=== PATIENT | female | born 1960 | race Caucasian/White ===

== ENCOUNTER → 2016-10-08 | Outpatient (CLI) | payer SELFPAY | LOC: MW.CHOBGYN 10:13 | PROVIDERS: ATTEND Nurse Practitioner Women's Health | DX: E78.5 Hyperlipidemia, unspecified (principal) | CPT/HCPCS: 36415; 80061 ==

== ENCOUNTER → 2016-10-14 | Outpatient (CLI) | payer SELFPAY | END | disposition home or self-care (01) | LOC: MW.CHOBGYN 15:03 | DX: R07.9 Chest pain, unspecified (principal) ==

== ENCOUNTER → 2016-10-18 | Outpatient (CLI) | payer SELFPAY ==
--- NOTE | 2016-10-20 16:05 | US ---
EXAM DATE: 10/18/16 PATIENT'S AGE: 56 Patient: ARIANA DUBON Facility: [facility], [place], [place] Site . Site : [id number] Study: US Head [id number]/[id number] 12:22:08 PM Ordering Physician: Claudia Meier Final Report: HISTORY: Subjective visual disturbances. Headaches. Findings: Multiple grayscale static images from a bilateral carotid ultrasound were evaluated. Color and spectral Doppler was used. There is no echogenic plaque is seen within the right carotid vasculature. The peak systolic velocity in the distal right carotid bulb is 50 cm/second. The peak systolic velocity in the right internal carotid artery is 108 cm/second. The peak end-diastolic velocity is 45 cm/second. The right external carotid artery is patent. The right vertebral artery demonstrates antegrade flow. No echogenic plaque is seen within the left carotid bulb. The peak systolic velocity in the distal left common carotid artery is 62 cm/second. The peak systolic velocity left internal carotid artery is 116 cm/second. The peak end- diastolic velocity is 48 cm/second. The left external carotid is patent. The left vertebral artery demonstrates antegrade flow. Impression: 1. The Doppler waveforms within the right and left internal carotid arteries are compound less than 50 percent stenosis. They are the lower end of this range. 2. Antegrade flow within both vertebral arteries. Dictated by Kathrine Diego MD @ Oct 19 2016 10:26AM (Electronic Signature) Report Signed by Proxy and Original Signed Document filed in the Medical Record. LANE
== END ==
LOC: MW.US 11:17
PROVIDERS: ATTEND Nurse Practitioner Women's Health
DX: H53.10 Unspecified subjective visual disturbances (principal)
CPT/HCPCS: 93880; 93880-26

== ENCOUNTER 2018-03-24 08:05 | Day surgery (SDC) | payer OTHER ==
[~2018-03-24 08:05] MED LIST: Lactated Ringers 1,000 ML IV SCH
[2018-03-24] MEDS ORDERED: Lidocaine 2% 5 ML SDV ONE (08:44)
[2018-03-24] MEDS ORDERED: fentaNYL 100 MCG/2 ML SDV ONE (08:44)
[2018-03-24] MEDS ORDERED: Propofol 200 MG/20 ML SDV ONE ×2 (08:44→10:34)
[2018-03-24] MEDS ORDERED: Midazolam 1 MG/ML 2 ML SDV ONE (08:45)
--- NOTE | 2018-03-24 08:52 | PCM.PREANE ---
Preanesthetic Assessment - Procedure Proposed Procedure: Colonoscopy - Anesthesia/Transfusion/Family Hx Anesthesia History: Prior Anesthesia Reaction Other Type of Anesthesia Reaction Comment: "arrhythmia with carpal tunnel surgery" Family History of Anesthesia Reaction: No Transfusion History: No Prior Transfusion(s) Intubation History: Unknown - Review of Systems General: No Symptoms Pulmonary: Other (smoker) Cardiovascular: Other (hx of arrhythmia with anesthetic elsewhere) Gastrointestinal: No Symptoms Neurological: No Symptoms Other: Reports: Diabetes (borderline per hx), Anxiety - Physical Assessment NPO Status Date: 03/23/18 NPO Status Time: 23:00 O2 Sat by Pulse Oximetry: 97 Respiratory Rate: 16 Vital Signs: Last Vital Signs Temp 97.0 F 03/24/18 08:25 Pulse 71 03/24/18 08:25 Resp 16 03/24/18 08:25 BP 107/53 L 03/24/18 08:25 Pulse Ox 97 03/24/18 08:25 Height: 5 ft 1 in Weight: 138 lb ASA Class: 2 Mental Status: Alert & Oriented x3 Airway Class: Mallampati = 2 Dentition: Reports: Dentures (lowers out) Thyro-Mental Finger Breadths: 3 Mouth Opening Finger Breadths: 3 ROM/Head Extension: Full Lungs: Clear to Auscultation, Normal Respiratory Effort Cardiovascular: Regular Rate, Regular Rhythm, No Murmurs - Allergies Allergies/Adverse Reactions: Allergies Allergy/AdvReac Type Severity Reaction Status Date / Time bee venom protein (honey bee) Allergy Swelling Verified 03/21/18 09:26 codeine Allergy Nausea and Verified 03/21/18 09:26 Vomiting mold Allergy hayfever Verified 03/21/18 09:26 symptoms pollen extracts Allergy hayfever Verified 03/21/18 09:26 symptoms dust mite Allergy "hayfever Uncoded 03/21/18 09:26 symptoms" - Blood Blood Available: No Product(s) Available: None - Anesthesia Plan Pre-Op Medication Ordered: None - Acknowledgements Anesthesia Type Planned: MAC Pt an Appropriate Candidate for the Planned Anesthesia: Yes Alternatives and Risks of Anesthesia Discussed w Pt/Guardian: Yes Pt/Guardian Understands and Agrees with Anesthesia Plan: Yes PreAnesthesia Questionnaire HEENT History: Reports: Allergic Rhinitis, Other (See Below) Other HEENT History: wears glasses, top denture Cardiovascular History: Reports: High Cholesterol, Other (See Below) Other Cardiovascular History: palpatations Gastrointestinal History: Reports: None Genitourinary History: Reports: None 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, Musculoskeletal History: Reports: None Psychiatric History: Reports: Anxiety, Depression Endocrine/Metabolic History: Reports: Other (See Below) Other Endocrine/Metabolic History: "borderline diabetic", diet controlled - Past Surgical History Head Surgeries/Procedures: Reports: None GI Surgical History: Reports: Cholecystectomy Female Surgical History: Reports: Tubal Ligation, Other (See Below) Other Female Surgeries/Procedures: laparoscopy for endometriosis Musculoskeletal Surgical History: Reports: Carpal Tunnel - SUBSTANCE USE Smoking Status *Q: Current Every Day Smoker Tobacco Use Within Last Twelve Months: Cigarettes Recreational Drug Use History: No - HOME MEDS Home Medications: Home Meds Ascorbic Acid/Collagen Hydr [Collagen Plus Vit C] 2 tab PO DAILY 03/21/18 [ History] Cranberry Fruit [Cranberry] 2 tab PO DAILY 03/21/18 [History] Fish Oil/[place]-3 Fatty Acids [Fish Oil 1,000 MG] 1 tab PO DAILY 03/21/18 [ History] Lutein 1 tab PO DAILY 03/21/18 [History] PARoxetine HCl [Paxil] 1 tab PO DAILY 03/21/18 [History] Vitamin E 2 tab PO DAILY 03/21/18 [History] Zolpidem Tartrate [Zolpidem Tartrate ER] 1 tab PO BEDTIME PRN 03/21/18 [History] atorvaSTATin Calcium [Atorvastatin Calcium] 40 mg PO DAILY 03/21/18 [History] - CURRENT (IN HOUSE) MEDS Current Meds: Current Medications Lactated Ringer's (Ringers, Lactated) 1,000 mls @ 125 mls/hr IV ASDIRECTED RENÉE Last Admin: 03/24/18 08:30 Dose: 125 mls/hr Discontinued Medications Fentanyl (Sublimaze) Confirm Administered Dose 100 mcg .ROUTE .STK-MED ONE Stop: 03/24/18 08:45 Lidocaine (Xylocaine-Mpf 2%) Confirm Administered Dose 10 ml .ROUTE .STK-MED ONE Stop: 03/24/18 08:45 Midazolam HCl (Versed 1 Mg/Ml) Confirm Administered Dose 2 mg .ROUTE .STK-MED ONE Stop: 03/24/18 08:46 Propofol (Diprivan 20 Ml) Confirm Administered Dose 400 mg .ROUTE .STK-MED ONE Stop: 03/24/18 08:45
[2018-03-24] MEDS ORDERED: Sodium Chloride 0.9% 2.5 ML Syringe FLUSH PRN (10:54)
[2018-03-24] MEDS ORDERED: Ondansetron 4 MG/2 ML SDV IVPUSH PRN (10:54)
[2018-03-24] MEDS ORDERED: Sodium Chloride 0.9% 10 ML Syringe FLUSH PRN (10:54)
--- NOTE | 2018-03-24 10:57 | PCM.OPNOTE ---
- General Post-Op/Procedure Note Date of Surgery/Procedure: 03/24/18 Operative Procedure(s): Colonoscopy with cold sigmoid colon polypectomy Pre Op Diagnosis: Desire for colorectal cancer screening Post-Op Diagnosis: Sigmoid polyp. Pancolonic diverticulosis. Anesthesia Technique: MAC (ASA II) Primary Surgeon: Gabriel Elizalde Professional Advisor: Satish Gomez Condition: Good Free Text/Narrative:: DICTATION [id number] CPT CODE 28468
--- NOTE | 2018-03-24 11:26 | PCM.POSTAN ---
POST ANESTHESIA ASSESSMENT - MENTAL STATUS Mental Status: Alert, Oriented - RESPIRATORY Respiratory Status: Respiratory Rate WNL, Airway Patent, O2 Saturation Stable - CARDIOVASCULAR CV Status: Pulse Rate WNL, Blood Pressure Stable - GASTROINTESTINAL GI Status: No Symptoms - POST OP HYDRATION Hydration Status: Adequate & Stable
--- NOTE | 2018-03-24 11:29 | PCM48HPAN ---
Post Anesthesia Note - EVALUATION WITHIN 48HRS OF ANESTHETIC Vital Signs in Normal Range: Yes Patient Participated in Evaluation: Yes Respiratory Function Stable: Yes Airway Patent: Yes Cardiovascular Function Stable: Yes Hydration Status Stable: Yes Pain Control Satisfactory: Yes Nausea and Vomiting Control Satisfactory: Yes Mental Status Recovered: Yes Resp Rate: 8
--- NOTE | 2018-03-24 15:54 | OR ---
SURGEON: Gabriel Elizalde M.D. DATE OF PROCEDURE: 03/24/2018 OPERATION PERFORMED: Colonoscopy with cold sigmoid colon polypectomy. COMMODITIES REQUIREMENTS ANALYST: Dr. Bazzi, PGY2 ANESTHESIA: MAC. ASA CLASSIFICATION: II. PREOPERATIVE DIAGNOSIS: Desire for colorectal cancer screening. POSTOPERATIVE DIAGNOSES: 1. Sigmoid polyp. 2. Pancolonic diverticulosis. DESCRIPTION OF PROCEDURE: The patient was taken to the endoscopy room and positioned on the endoscopy table in the left lateral decubitus position. Time-out was called for appropriate identification of patient and procedure. Monitored anesthesia care was provided. The colonoscope was inserted into the rectum and advanced with moderate difficulty to the cecum where the colonoscope was retroflexed to visualize the ascending colon from below. The colonoscope was then straightened and slowly withdrawn. The patient demonstrates diverticular changes scattered throughout the entire length of the colon. The cecum, ascending colon, hepatic flexure, transverse colon, splenic flexure, descending colon, sigmoid colon, and rectum were very well visualized. I was able to retroflex the colonoscope in the cecum to visualize the ascending colon from below before straightening it and withdrawing it. One polyp was encountered in the sigmoid colon and removed with multiple bites of the cold biopsy forceps. The colonoscope was then withdrawn to the rectum and retroflexed to visualize the anal orifice from above. No tumors, polyps, or acute hemorrhoidal changes were noted. The colonoscope was straightened, the rectum aspirated, and the colonoscope removed. The patient tolerated the procedure well and was taken to recovery room in stable condition. JOSE / PARISA /[id number]
== END 2018-03-24 12:20 | disposition home or self-care (01) ==
LOC: MW.SDS 08:05
PROVIDERS: ATTEND Surgery
DX: Z12.11 Encounter for screening for malignant neoplasm of colon (principal); D12.5 Benign neoplasm of sigmoid colon; K57.30 Diverticulosis of large intestine without perforation or abscess without bleeding; J30.9 Allergic rhinitis, unspecified; E11.9 Type 2 diabetes mellitus without complications; E87.1 Hypo-osmolality and hyponatremia; E78.5 Hyperlipidemia, unspecified; G47.00 Insomnia, unspecified; D72.829 Elevated white blood cell count, unspecified; F41.9 Anxiety disorder, unspecified; F41.8 Other specified anxiety disorders; F17.210 Nicotine dependence, cigarettes, uncomplicated; Z79.899 Other long term (current) drug therapy; Z88.5 Allergy status to narcotic agent; Z91.030 Bee allergy status; Z91.048 Other nonmedicinal substance allergy status
CPT/HCPCS: 45380; J2250; J2704; J3010; J7120; 88305

== ENCOUNTER 2018-10-27 07:23 | Day surgery (SDC) | payer OTHER ==
[2018-10-27] MEDS ORDERED: Lidocaine 2% 5 ML SDV ONE (07:43)
[2018-10-27] MEDS ORDERED: Midazolam 1 MG/ML 2 ML SDV ONE (07:44)
[2018-10-27] MEDS ORDERED: fentaNYL 100 MCG/2 ML SDV ONE (07:44)
[2018-10-27] MEDS ORDERED: Propofol 200 MG/20 ML SDV ONE (07:44)
[2018-10-27] MEDS ORDERED: traMADol 50 MG Tab PO PRN (08:00)
[2018-10-27] MEDS ORDERED: Bupivacaine 0.25%/EPINEPHrine 1:200,000 10 ML SDV INJECT ONE (08:00)
[2018-10-27] MEDS ORDERED: ceFAZolin 2 GM in Premix Bag 1 BAG IV ONE (08:00)
[2018-10-27] MEDS ORDERED: Lactated Ringers 1,000 ML IV SCH (08:00)
[2018-10-27] MEDS ORDERED: ceFAZolin 1 GM Vial ONE (08:22)
[2018-10-27] MEDS ORDERED: Meperidine PF 25 MG/ML Syringe IV PRN (08:24)
[2018-10-27] MEDS ORDERED: fentaNYL 100 MCG/2 ML SDV IVPUSH PRN (08:25)
--- NOTE | 2018-10-27 08:43 | PCM.PREANE ---
Preanesthetic Assessment - Anesthesia/Transfusion/Family Hx Anesthesia History: Prior Anesthesia Without Reaction Other Type of Anesthesia Reaction Comment: "arrhythmia with carpal tunnel surgery" Transfusion History: No Prior Transfusion(s) Intubation History: Unknown - Review of Systems General: No Symptoms Pulmonary: No Symptoms Cardiovascular: No Symptoms Gastrointestinal: No Symptoms Neurological: No Symptoms Other: Reports: None - Physical Assessment NPO Status Date: 10/26/18 NPO Status Time: 23:00 O2 Sat by Pulse Oximetry: 97 Respiratory Rate: 16 Vital Signs: Last Vital Signs Temp 680.0 F H 10/27/18 06:45 Pulse 72 10/27/18 06:45 Resp 16 10/27/18 06:45 BP 122/74 10/27/18 06:45 Pulse Ox 97 10/27/18 06:45 Height: 5 ft 1 in Weight: 63.503 kg ASA Class: 2 Mental Status: Alert & Oriented x3 Airway Class: Mallampati = 2 Dentition: Reports: Dentures Thyro-Mental Finger Breadths: 3 Mouth Opening Finger Breadths: 3 ROM/Head Extension: Limited/Partial Lungs: Clear to Auscultation, Normal Respiratory Effort Cardiovascular: Regular Rate, Regular Rhythm - Allergies Allergies/Adverse Reactions: Allergies Allergy/AdvReac Type Severity Reaction Status Date / Time bee venom protein (honey bee) Allergy Swelling Verified 10/24/18 10:06 codeine Allergy Nausea and Verified 10/24/18 10:06 Vomiting mold Allergy hayfever Verified 10/24/18 10:06 symptoms pollen extracts Allergy hayfever Verified 10/24/18 10:06 symptoms dust mite Allergy "hayfever Uncoded 03/21/18 09:26 symptoms" - Acknowledgements Anesthesia Type Planned: MAC (Local with Light MAC) Pt an Appropriate Candidate for the Planned Anesthesia: Yes Alternatives and Risks of Anesthesia Discussed w Pt/Guardian: Yes Pt/Guardian Understands and Agrees with Anesthesia Plan: Yes PreAnesthesia Questionnaire HEENT History: Reports: Allergic Rhinitis, Other (See Below) Other HEENT History: wears glasses, top denture Cardiovascular History: Reports: High Cholesterol, Hypertension Respiratory History: Reports: None Gastrointestinal History: Reports: Diverticulosis Genitourinary History: Reports: None [employer]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: 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, Musculoskeletal History: Reports: Back Pain, Chronic, Osteoarthritis Neurological History: Reports: None Psychiatric History: Reports: Anxiety, Depression Endocrine/Metabolic History: Reports: Other (See Below) Other Endocrine/Metabolic History: "borderline diabetic", diet controlled Hematologic History: Reports: None Immunologic History: Reports: None Oncologic (Cancer) History: Reports: None Dermatologic History: Reports: None - Infectious Disease History Infectious Disease History: Reports: None - Past Surgical History Head Surgeries/Procedures: Reports: None Respiratory Surgical History: Reports: None GI Surgical History: Reports: Cholecystectomy, Colonoscopy Female Surgical History: Reports: Tubal Ligation, Other (See Below) Other Female Surgeries/Procedures: laparoscopy for endometriosis Neurological Surgical History: Reports: None Musculoskeletal Surgical History: Reports: Carpal Tunnel Oncologic Surgical History: Reports: None Dermatological Surgical History: Reports: None - SUBSTANCE USE Smoking Status *Q: Current Every Day Smoker Tobacco Use Within Last Twelve Months: Cigarettes Recreational Drug Use History: No - HOME MEDS Home Medications: Home Meds Ascorbic Acid/Collagen Hydr [Collagen Plus Vit C] 2 tab PO DAILY 03/21/18 [ History] Cranberry Fruit [Cranberry] 2 tab PO DAILY 03/21/18 [History] Fish Oil/[place]-3 Fatty Acids [Fish Oil 1,000 MG] 1 tab PO DAILY 03/21/18 [ History] Lutein 1 tab PO DAILY 03/21/18 [History] PARoxetine HCl [Paxil] 1 tab PO DAILY 03/21/18 [History] Vitamin E 2 tab PO DAILY 03/21/18 [History] atorvaSTATin Calcium [Atorvastatin Calcium] 40 mg PO DAILY 03/21/18 [History] Ketamine Hcl Cream 1 applic TOP ASDIRECTED PRN 10/24/18 [History] Lidocaine/Prilocaine [Lidocaine-Prilocaine Cream] 1 applic TOP ASDIRECTED PRN [History] - CURRENT (IN HOUSE) MEDS Current Meds: Current Medications Fentanyl (Sublimaze) 50 - 100 mcg IVPUSH Q5M PRN PRN Reason: Pain Stop: 10/27/18 14:25 Lactated Ringer's (Ringers, Lactated) 1,000 mls @ 125 mls/hr IV ASDIRECTED RENÉE Last Admin: 10/27/18 07:55 Dose: 125 mls/hr Meperidine HCl (Demerol) 12.5 - 25 mg IV ONETIME PRN PRN Reason: Shivering Stop: 10/27/18 12:25 Tramadol HCl (Ultram) 50 mg PO Q4H PRN PRN Reason: Pain Discontinued Medications Bupivacaine HCl/Epinephrine Bitart (Marcaine 0.25%/Epinephrine 1:200,000) 10 ml INJECT ONETIME ONE Stop: 10/27/18 08:01 Cefazolin Sodium (Ancef) Confirm Administered Dose 2 gm .ROUTE .STK-MED ONE Stop: 10/27/18 08:23 Fentanyl (Sublimaze) Confirm Administered Dose 100 mcg .ROUTE .STK-MED ONE Stop: 10/27/18 07:45 Cefazolin Sodium/Dextrose 2 gm (/ Premix) 50 mls @ 100 mls/hr IV ONETIME ONE Stop: 10/27/18 08:29 Lidocaine (Xylocaine-Mpf 2%) Confirm Administered Dose 5 ml .ROUTE .STK-MED ONE Stop: 10/27/18 07:44 Midazolam HCl (Versed 1 Mg/Ml) Confirm Administered Dose 2 mg .ROUTE .STK-MED ONE Stop: 10/27/18 07:45 Propofol (Diprivan 20 Ml) Confirm Administered Dose 200 mg .ROUTE .STK-MED ONE Stop: 10/27/18 07:45
[2018-10-27] MEDS ORDERED: Bupivacaine 0.25%/EPINEPHrine 1:200,000 10 ML SDV ONE (09:11)
[2018-10-27] MEDS ORDERED: Ondansetron 4 MG/2 ML SDV ONE (10:00)
--- NOTE | 2018-10-27 11:21 | PCM48HPAN ---
Post Anesthesia Note - EVALUATION WITHIN 48HRS OF ANESTHETIC Vital Signs in Normal Range: Yes Patient Participated in Evaluation: Yes Respiratory Function Stable: Yes Airway Patent: Yes Cardiovascular Function Stable: Yes Hydration Status Stable: Yes Pain Control Satisfactory: Yes Nausea and Vomiting Control Satisfactory: Yes Mental Status Recovered: Yes Resp Rate: 11 - COMMENTS/OBSERVATIONS Free Text/Narrative:: no anesthesia problems
--- NOTE | 2018-10-28 10:15 | PCM.OPNOTE ---
- General Post-Op/Procedure Note Date of Surgery/Procedure: 10/27/18 Operative Procedure(s): excision of right thumb ganglion Pre Op Diagnosis: right thumb ganglion Post-Op Diagnosis: Same Anesthesia Technique: Local, MAC Primary Surgeon: Irlanda Coffey Varnish Finisher: Michelle Monique Complications: None Condition: Good
--- NOTE | 2018-10-30 11:01 | OR ---
SURGEON: FALGUNI WHITAKER MD DATE OF PROCEDURE: 10/27/2018 PREOPERATIVE DIAGNOSIS: Right thumb ganglion. POSTOPERATIVE DIAGNOSIS: Right thumb ganglion. PROCEDURES: Excision of right thumb ganglion. CASE CHECKER: ISAIAH Calderón. REASON FOR AND ROLE OF CASE CHECKER: Retraction, prepping, draping, positioning and closure assistance. ANESTHESIA: Local MAC. INDICATIONS: Ms. Dumont is a 58-year-old female, seen today in evaluation for right thumb ganglion. It does appear to come from the metacarpophalangeal joint. It is not mobile with the tendon. Risks and benefits of removal were discussed with her, including, but not limited to, bleeding, infection, damage to underlying or overlying structures, possible need for future interventions, possible scarring. PROCEDURE IN DETAIL: After informed consent was obtained and placed on the chart, the patient was brought to the operating theater and laid in the supine position. After adequate local MAC anesthesia was obtained, the area was prepped and draped and a time-out was completed to confirm side and site. A curvilinear incision was made and dissection was carried circumferentially around the ganglion. It was easily removed and traced to the joint. The joint was cauterized, closed with a 4.0 monocryl, and meticulous hemostasis was obtained. The wound was then closed with 5-0 nylon stitch in a horizontal mattress fashion. Once adequately closed, it was dressed with Xeroform, fluffs, and a Kerlix gauze dressing, and a 2-inch Roger wrap. The patient tolerated this well. All counts and needles were correct at the end of the case. FOLLOWUP INSTRUCTIONS: The patient will see us in 10 to 14 days, sooner if any problems, questions, or concerns. She was given a prescription for tramadol for pain control if needed. HEGGTHE / MODL /[id number] LANE
== END 2018-10-27 11:30 | disposition home or self-care (01) ==
LOC: MW.SDS 07:23
PROVIDERS: ATTEND Plastic Surgery
DX: M67.441 Ganglion, right hand (principal); I10 Essential (primary) hypertension; F17.210 Nicotine dependence, cigarettes, uncomplicated; E78.00 Pure hypercholesterolemia, unspecified; F41.9 Anxiety disorder, unspecified; F32.9 Major depressive disorder, single episode, unspecified; E78.5 Hyperlipidemia, unspecified; M17.0 Bilateral primary osteoarthritis of knee; Z79.899 Other long term (current) drug therapy; Z88.5 Allergy status to narcotic agent; Z88.8 Allergy status to other drugs, medicaments and biological substances; Z91.030 Bee allergy status
CPT/HCPCS: 26160; J0690; J2001; J2250; J2405; J2704; J3010; J3490; J7120; 88304

== ENCOUNTER 2023-06-20 09:25 | Day surgery (SDC) | payer BC ==
[2023-06-20] MEDS ORDERED: propofoL 50 ML ONE (10:26)
[2023-06-20] MEDS ORDERED: Lactated Ringers 1,000 ML IV SCH (11:30)
== END 2023-06-20 11:55 | disposition home or self-care (01) ==
LOC: MW.SDS 09:25
PROVIDERS: ATTEND Surgery
DX: Z12.11 Encounter for screening for malignant neoplasm of colon (principal); K57.30 Diverticulosis of large intestine without perforation or abscess without bleeding; I10 Essential (primary) hypertension; M54.50 Low back pain, unspecified; G89.29 Other chronic pain; F41.8 Other specified anxiety disorders; E78.00 Pure hypercholesterolemia, unspecified; E11.9 Type 2 diabetes mellitus without complications; F41.9 Anxiety disorder, unspecified; G47.00 Insomnia, unspecified; F17.210 Nicotine dependence, cigarettes, uncomplicated; Z86.010 Personal history of colon polyps; Z88.5 Allergy status to narcotic agent; Z88.8 Allergy status to other drugs, medicaments and biological substances; Z79.899 Other long term (current) drug therapy
CPT/HCPCS: 45378; J2704; J7120

== ENCOUNTER 2024-03-13 11:55 | Emergency (ER) | payer BC ==
[2024-03-13] MEDS: Albuterol 8 GM Inhaler INH STA (12:53)
[2024-03-13] MEDS: Sodium Chloride 0.9% 1,000 ML IV ONE (12:53)
[2024-03-13] MEDS: Ketorolac 30 MG/ML SDV IVPUSH ONE (12:54)
[2024-03-13] MEDS: Acetaminophen 500 MG Tab PO ONE (12:54)
[2024-03-13 13:20] LABS: BASOPHILS ABSOLUTE AUTO 0.04 K/uL (0.00-0.20); BASOPHILS PERCENT AUTO 0.4 % (0.0-1.0); EOSINOPHILS ABSOLUTE AUTO 0.09 K/uL (0.00-0.45); HEMATOCRIT 44.3 % (37.0-47.0); HEMOGLOBIN 15.5 g/dL (12.0-16.0); IMMATURE GRAN ABSOLUTE AUTO 0.02 K/uL (0.00-0.05); IMMATURE GRAN PERCENT AUTO 0.2 % (0.0-0.4); LYMPHOCYTES ABSOLUTE AUTO 3.85 K/uL (1.00-4.80); MEAN CORPUSCULAR HEMOGLOBIN 30.4 pg (28.0-32.0); MEAN CORPUSCULAR VOLUME 86.9 fL (83.0-99.0); MEAN PLATELET VOLUME 9.7 fL (9.4-12.3); MONOCYTES ABSOLUTE AUTO 0.56 K/uL (0.00-0.80); MONOCYTES PERCENT AUTO 6.1 % (0.0-8.0); NEUTROPHILS PERCENT AUTO 50.3 % (41.0-71.0); PLATELET COUNT,PLT 264 K/uL (150-400); WHITE BLOOD CELL COUNT,WBC 9.16 K/uL (3.9-11.3)
[2024-03-13 14:00] LABS: ALBUMIN 3.6 g/dL (3.4-5.0); BILIRUBIN TOTAL 0.5 mg/dL (0.2-1.0); CALCIUM 8.7 mg/dL (8.5-10.1); CARBON DIOXIDE,CO2 25.2 mmol/L (21.0-32.0); CREATININE 0.7 mg/dL (0.6-1.0); EST CRCL DRUG DOSING (CG) 62.88 mL/min; POTASSIUM,K 3.4 mmol/L (3.5-5.1); PROTEIN TOTAL,TP 7.3 g/dL (6.4-8.2)
== END 2024-03-13 14:43 | disposition home or self-care (01) ==
LOC: MW.ED 11:55
DX: U07.1 COVID-19 (principal); J12.82 Pneumonia due to coronavirus disease 2019; I10 Essential (primary) hypertension; E78.00 Pure hypercholesterolemia, unspecified; F17.210 Nicotine dependence, cigarettes, uncomplicated; Z90.49 Acquired absence of other specified parts of digestive tract; Z79.899 Other long term (current) drug therapy; Z91.030 Bee allergy status; Z88.5 Allergy status to narcotic agent; Z91.048 Other nonmedicinal substance allergy status; Z75.8 Other problems related to medical facilities and other health care
CPT/HCPCS: 36415; 71046; 80053; 85025; 96361; 96374; 99283; A9270; J1885; J7030; 99284